=== PATIENT | male | born 1935 | race Caucasian/White ===

== ENCOUNTER 2017-02-16 15:05 | Day surgery (SDC) | payer MEDICARE, OTHER ==
[~2017-02-16] VITALS: Ht 182.9 cm; Wt 99.8 kg
--- NOTE | 2017-02-16 12:08 | NUR ---
02/16/17 [email or web address] Melody Bowman PT RESPONDED TO STIMULI
[~2017-02-16 15:05] MED LIST: AMLODIPINE BESY10 MG PO; ATENOLOL50 MG PO; ATORVASTATIN CA40 MG PO; AVODART0.5 MG PO; BACTRIM DS TAB1 EACH PO; CARTIA XT240 MG PO; ELIQUIS5 MG PO; FAMOTIDINE40 MG PO; FLUOXETINE HCL20 MG PO; HYDROCODON-ACE1 EA10 PO; INDAPAMIDE2.5 MG PO; KLOR-CON M2020 MEQ PO; LORAZEPAM1 MG PO; MAPAP325 MG PO; NORCO 5-325 TA1 EACH PO; OMEPRAZOLE20 MG PO; OXYCODON-ACETA1 EAC2 PO; POTASSIUM CHLO20 ME1 PO; SIMVASTATIN80 MG PO; WARFARIN SODIUM5 MG PO
--- NOTE | 2017-02-16 15:22 | NUR ---
1250: PATIENT BACK IN DAY SURGERY ROOM FROM PACU. C/O PAIN 4/10. DECLINES PAIN MEDS AT THIS TIME. RUQ ABDOMINAL DRESSING HAS PINK SHADOWING AND IS INTACT. IV SITE WNL. SCDs ON. GIVEN ICE WATER, JELLO, AND PUDDING. CALL LIGHT WITHIN REACH. PRESCRIPTION GIVEN TO TO GO GET FILLED. EDUCATED PATIENT NOT TO GET OOB WITHOUT ASSISTANCE. 1345: PATIENT TOLERATED WATER, JELLO, AND PUDDING. MEDICATED FOR 6/10 PAIN WITH 1 TABLET OF PERCOCET. RUQ ABDOMINAL DRESSING UNCHANGED. CALL LIGHT WITHIN REACH. 1430: PATIENT ASSISTED OOB WITH 2 RN ASSIST. VOID WITHOUT DIFFICULTY. STAND BY ASSIST BACK TO ROOM. PATIENT STATES READY TO GO HOME. IV DC'D WNL DRESSING APPLIED. DISCHARGE INSTRUCTIONS GIVEN TO PATIENT AND . GIVEN 3 BOATS OF GUAZE AND Q-TIPS. 1435: PATIENT DISCHARGED TO HOME WITH VIA WHEELCHAIR.
--- NOTE | 2017-02-19 12:15 | OR ---
[facility] [address], [place] [address] Signed DATE OF PROCEDURE: 02/16/17 PREOPERATIVE DIAGNOSES Persistent drainage at prior right upper abdominal trocar site (laparoscopic cholecystectomy, Dr. Elizabeth). Multiple medical problems. POSTOPERATIVE DIAGNOSIS Sinus tract extending through skin, subcutaneous tissue, rectus fascia, and muscle. PROCEDURE Wound exploration of abdominal wall. Excision of sinus tract including skin, subcutaneous fat, abdominal wall fascia and muscle with wound packing. SURGEON: Kathie Corado M.D. ANESTHESIA: General LMA (Brenda Carlson CRNA). INDICATION This 81-year-old, white man underwent laparoscopic cholecystectomy for acute calculous cholecystitis by Dr. Dereck Elizabeth in 2013. He is a patient of Dr. Moise. He has had episodic drainage from this wound site over time and underwent incision and drainage of the wound site in April of 2016. I saw him in routine follow-up of a thyroid nodule and he noted a granulomatous abnormality at this trocar site for which I performed silver nitrate cauterization and debridement for what appeared to be a pyogenic granuloma. He has had persistent episodic drainage from this area. 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 He is admitted at this time to undergo exam under anesthesia, debridement of the wound and excision of this tissue as appropriate. Bridge therapy has been initiated and he has been o ff of his Eliquis medication for this purpose. He understands the risks of bleeding, infection, failure to cure the problem, need for additional treatment and so forth and wished to proceed. FINDINGS Well-formed scab was noted at the offending site in the right upper abdomen relatively close to the midline. Probing of the wound with a hemostat showed a sinus type tract. There is no sign of egress of bile or anything of that sort. Core excision was Electronically Signed By: KATHIE CORADO MD 02/19/17 1215 PATIENT NAME: FABIEN KELLER OPERATIVE REPORT DATE OF : 33 PHYSICIAN: KATHEI CORADO MD REPORT #: [id number] REPORT IS CONFIDENTIAL AND NOT TO BE RELEASED WITHOUT AUTHORIZATION [facility] [address], [place] [address] Signed undertaken through the subcutaneous tissue, anterior abdominal wall fascia, muscle and so forth. Firm fibrous track was noted and had a somewhat infected appearance overall. Complete excision was undertaken, though I did not enter into the peritoneal cavity with dissection. I did not see obvious sign of retained gallstones within the trocar site or anything of that sort. The patient had a fair amount of premature ventricular contractions during the operation, although they were unifocal and operation was somewhat abbreviated on that basis. The wound was packed at conclusion. PROCEDURE The patient brought to the operating room, given a general anesthetic by LMA technique. Preoperative antibiotics had been given. Sequential compression device stockings used. The upper abdomen was clipped in the area of interest and prepared with a Chlorhexidine solution and draped sterilely. The scab over the episodically draining site was gently removed and a hemostat was used to probe the site. It appeared to be a fistulous or sinus type well-formed fibrous tract. Elliptical incision was undertaken with a Bovie cautery. Dissection carried through the dermis and subcutaneous tissue following the trocar tract site. Dissection was carried through the rectus fascia into the muscle, it appeared to persist even further. There appeared to be some inflammatory changes, but no actual purulence per se. I did not see obvious foreign body. Further dissection was carried more deeply. The patient did develop PVCs of some concern to the sports marketer. Excision of the deepest portion of the tissue reasonable was undertaken and cautery used for hemostasis. Irrigation was undertaken and the wound was packed with plain gauze and operation discontinued. The patient was ultimately extubated and transferred to recovery in good condition with resolution of the PVCs overall. MD JESSICA Reynoso/Susannal /[id number] cc: Electronically Signed By: KATHIE CORADO MD 02/19/17 1215 PATIENT NAME: FABIEN KELLER OPERATIVE REPORT DATE OF : 33 PHYSICIAN: KATHIE CORADO MD REPORT #: [id number] REPORT IS CONFIDENTIAL AND NOT TO BE RELEASED WITHOUT AUTHORIZATION [address] [address] Signed Donato Penny MD Electronically Signed By: KATHIE CORADO MD 02/19/17 1215 PATIENT NAME: FABIEN KELLER OPERATIVE REPORT DATE OF : 33 PHYSICIAN: KATHIE CORADO MD REPORT #: [id number] REPORT IS CONFIDENTIAL AND NOT TO BE RELEASED WITHOUT AUTHORIZATION
== END 2017-02-16 15:06 | disposition home or self-care (01) ==
LOC: DS 15:05
PROVIDERS: Surgery
PROC: 0KBK0ZZ Excision of Right Abdomen Muscle, Open Approach (ICD-10-PCS; principal; 2017-02-16 12:15)
DX: K63.2 Fistula of intestine (principal); K21.9 Gastro-esophageal reflux disease without esophagitis; F41.9 Anxiety disorder, unspecified; D64.9 Anemia, unspecified; E78.00 Pure hypercholesterolemia, unspecified; E04.2 Nontoxic multinodular goiter; E66.9 Obesity, unspecified; I10 Essential (primary) hypertension; Z90.89 Acquired absence of other organs; Z90.49 Acquired absence of other specified parts of digestive tract; Z98.890 Other specified postprocedural states; Z79.01 Long term (current) use of anticoagulants; Z68.31 Body mass index [BMI] 31.0-31.9, adult
CPT/HCPCS: 00700; 88305; J0690; J2310; J2704; J3010; J7120

== ENCOUNTER 2019-02-03 17:51 | Emergency (ER) | payer MEDICARE, OTHER ==
[~2019-02-03] VITALS: Ht 182.9 cm; Wt 99.8 kg
[2019-02-03] MEDS ORDERED: NYSTATIN100000 UN1 PO (18:07)
[2019-02-03] MEDS ORDERED: QUETIAPINE FUMA25 MG PO (18:08)
[2019-02-03] MEDS ORDERED: PERCOCET 5-3251 EACH PO (19:23)
== END 2019-02-03 19:33 | disposition home or self-care (01) ==
LOC: ED 17:51
DX: S22.32XA Fracture of one rib, left side, initial encounter for closed fracture (principal); I10 Essential (primary) hypertension; K21.9 Gastro-esophageal reflux disease without esophagitis; F41.9 Anxiety disorder, unspecified; Z79.899 Other long term (current) drug therapy; W01.198A Fall on same level from slipping, tripping and stumbling with subsequent striking against other object, initial encounter
CPT/HCPCS: 71101; 99284-25